=== PATIENT | male | born 1995 | race Caucasian/White ===

== ENCOUNTER 2017-12-01 13:18 | Emergency (ER) | payer MEDICAID ==
[2017-12-01] MEDS ORDERED: NALOXONE HCL 0.4 MG/ML INJ IVP ONE (13:22)
--- NOTE | 2017-12-01 13:23 | EDPHY ---
HPI/HX/ROS/PE/MDM Narrative: CHIEF COMPLAINT: Seizures, unresponsive HISTORY OF PRESENT ILLNESS: This patient is a 21 y/o male arriving emergently via EMS following multiple seizures. He was found this afternoon by his father at his [place] in [place], seizing and vomiting blood. On arrival the patient was in bed and EMS witnessed tonic-clonic seizure activity. EMS noted blood in the patient's mouth and missing teeth, but no trauma otherwise. Pupils pinpoint. Patient received Narcan. Minimal improvement. He received Versed IM by Fire Department as well as Versed IM by paramedics. He continued to have seizure activity noted in route. Patient was nasally intubated by EMS using Charli-Synephrine instilled in the nose, however he had as subsequent seizure and dislodged the nasal ET tube. He presents being bagged. Patient vitals on arrival were HR 170, BP 80/40, agonal breathing, BGL 216. BP improved to 90/36 following 1L IV NS. Per fire responders, there was no noticeable drug paraphernalia or alcohol on scene. His father denies any known past medical history, history of seizures, or known allergies. HPI obtained from EMS at bedside. Further HPI unobtainable due to patient presentation. History obtained from the father later includes no history of drug use, no history of seizures. Potential history of cocaine use in the remote past. Patient had been placed on Seroquel in the remote past but is no longer taking it. No medications available around the house other then Aleve. REVIEW OF SYSTEMS: Unable to obtain PAST MEDICAL HISTORY: Unknown. Per father, none. SOCIAL HISTORY: Lives in [place]. VITAL SIGNS: Reviewed by me; see NN. GENERAL: Unresponsive. Intermittent seizure activity. Seizure activity starts with rightward gaze followed by tonic clonic shaking of the upper extremities and tonic positioning of the lower extremities. HEENT: Head: Atraumatic, normocephalic. Face: Atraumatic. Eyes: Abnormally shaped left pupil. Small right pupil. Not reactive. Rightward gaze deviation when seizing. Oropharynx: Missing front left incisor. Blood in oropharynx. Neck : No adenopathy. Supple. CHEST: No subcutaneous air palpable. LUNGS: Coarse rhonchi throughout. CARDIAC: Tachycardic but regular. ABDOMEN: Soft, nondistended, bowel sounds normal. GENITOURINARY: Priapism. Patient incontinent of urine. BACK: No CVA tenderness, no spinal tenderness. EXTREMITIES: Intermittent tonic contractures of upper extremities. No trauma noted. PULSES: 2+ and equal throughout. NEURO: Unresponsive. See extremity/pupil findings. GCS: 3. No response to painful stimuli. SKIN: Warm and dry, no rash. Portions of this note were transcribed by a medical assisting program director. I personally performed a history, physical exam, medical decision making, and confirmed accuracy of information the transcribed note. ED Course: 13:18 Met EMS on arrival. Patient continues to seize. Unresponsive. Pupils unreactive. Right pupil pinpoint, left pupil oval, misshapen. Plan for intubation. Plan for CT Head. 1 mg of Ativan or.. 13:21 Procedure: Rapid sequence intubation. Indication for the procedure was airway protection. The patient was preoxygenated with 100% oxygen by face mask. The patient was given the following IV medications: 20mg IV Etomidate, 70mg IV rocuronium. The patient was orally endotracheally intubated under direct visualization with a 7.5 ETT. Tracheal intubation was confirmed with misting on the tube; breath sounds were auscultated equally bilaterally; appropriate color change with [place] [employer] CO2 detector. Chest X-ray shows ETT in good position. The procedure was performed by myself, Dr. Arenas. 13:21 Administered 1mg IV Ativan. 13:24 BP 127/68. Patient incontinent of urine. Plan to administer additional 1mg Ativan. Plan to administer 1gm IV Keppra. Plan for EKG, CXR, I-Stat. Coarse rhonchi throughout on auscultation. Patient had a considerable amount of blood in his mouth per EMS report. 13:35 CXR at bedside. ET tube slightly deep, no pneumonia noted. 14:[address] Bonilla, radiologist. CT head negative for acute processes including intracranial hemorrhage. While in the emergency department the patient continue to intermittently sees when his sedation, including propofol, wore off. Laboratory evaluation is remarkable for a bicarbonate of 7. Urine tox screen demonstrates no drugs of abuse. At this point patient was deemed to be in status epilepticus with no clear cause. Patient was loaded with 1 g of Dilantin. 14:[address] Patricio, neurologist at [facility]. Patient will be transferred by helicopter to [facility] for further evaluation. Dr. Patricio accepts admission. I spent a total of 45 minutes of critical care time in obtaining history, performing a physical exam, bedside monitoring of interventions, collecting and interpreting tests and discussion with consultants but not including time spent performing procedures. The organ system at risk was neurologic and I provided airway protection, provided anti epileptic medications, arrange for imaging studies, interpreted CT, discussed with Neurology, discussed with the family, and emergently transferred the patient to neurology specialty hospital to prevent worsening of the patients condition. MDM: Differential diagnosis of the patient's seizure was considered including but not limited to electrolyte abnormality, alcohol withdrawal, medication noncompliance, head injury, meningitis, encephalitis, and breakthrough seizure. - Data Points Imaging Results: Imaging Impressions Head CT 12/01/17 13:43 Impression: There is no acute intracranial abnormality identified on this unenhanced CT evaluation. If there is further clinical concern regarding the patient's symptoms, MR imaging is suggested, if not otherwise contraindicated. Findings were discussed with Dori Arenas MD at 14:00, on 12/01/2017. Chest X-Ray 12/01/17 13:50 Impression: 1. Status post intubation. 2. Portable AP recumbent changes, as detailed. Please see the above discussion. Findings were discussed with Dori Arenas MD at 14:14, on 12/01/2017. Imaging: Discussed imaging studies w/ psychologist [employer] personnel Radiologist, I viewed and interpreted images myself Laboratory Results: Laboratory Results 12/01/17 13:38 12/01/17 14:27 12/01/17 12/01/17 12/01/17 14:27 14:10 13:38 WBC RBC Hgb POC Hgb Hct POC Hct MCV MCH MCHC RDW Plt Count MPV Neut % (Auto) Lymph % (Auto) [place] % (Auto) Eos % (Auto) Baso % (Auto) Nucleat RBC Rel Count Absolute Neuts (auto) Absolute Lymphs (auto) Absolute Monos (auto) Absolute Eos (auto) Absolute Basos (auto) Absolute Nucleated RBC Immature Gran % Seg Neutrophils % Band Neutrophils % Lymphocytes % Monocytes % Metamyelocytes % Myelocytes % Immature Gran # Absolute Band Neuts Platelet Estimate POC Sodium Sodium 145 mEq/L mEq/L 149 mEq/L H mEq/L (135-145) (135-145) POC Potassium Potassium 5.2 mEq/L mEq/L 4.9 mEq/L mEq/L (3.5-5.2) (3.5-5.2) POC Chloride Chloride 109 mEq/L mEq/L 107 mEq/L mEq/L (97-110) (97-110) Carbon Dioxide 16 mEq/l L D mEq/l 7 mEq/l L* mEq/l (22-31) (22-31) Anion Gap 20 mEq/L H mEq/L 35 mEq/L H mEq/L (8-16) (8-16) POC BUN BUN 12 mg/dL mg/dL 11 mg/dL mg/dL (7-23) (7-23) Creatinine 1.1 mg/dL mg/dL 1.2 mg/dL mg/dL (0.7-1.3) (0.7-1.3) POC Creatinine Estimated GFR > 60 > 60 Glucose 229 mg/dL H mg/dL 262 mg/dL H mg/dL (70-100) (70-100) POC Glucose Calcium 8.0 mg/dL L mg/dL 8.7 mg/dL mg/dL (8.5-10.4) (8.5-10.4) Troponin I < 0.012 ng/mL ng/mL (0.000-0.034) Specimen Hemolysis 100 Urine Opiates Screen NEGATIVE (NEGATIVE) Urine Barbiturates NEGATIVE (NEGATIVE) Ur Phencyclidine Scrn NEGATIVE (NEGATIVE) Ur Amphetamine Screen NEGATIVE (NEGATIVE) U Benzodiazepines Scrn NEGATIVE (NEGATIVE) Urine Cocaine Screen NEGATIVE (NEGATIVE) U Marijuana (THC) Screen NEGATIVE (NEGATIVE) Ethyl Alcohol < 10 mg/dL mg/dL (0-10) 12/01/17 12/01/17 13:38 13:36 WBC 23.13 10^3/uL H 10^3/uL (3.80-9.50) RBC 5.59 10^6/uL 10^6/uL (4.40-6.38) Hgb 17.5 g/dL g/dL (13.7-17.5) POC Hgb 18.0 gm/dL H gm/dL (13.7-17.5) Hct 51.9 % H % (40.0-51.0) POC Hct 53 % H % (40-51) MCV 92.8 fL fL (81.5-99.8) MCH 31.3 pg pg (27.9-34.1) MCHC 33.7 g/dL g/dL (32.4-36.7) RDW 12.6 % % (11.5-15.2) Plt Count 246 10^3/uL 10^3/uL (150-400) MPV 10.5 fL fL (8.7-11.7) Neut % (Auto) Not Reported Lymph % (Auto) Not Reported [place] % (Auto) Not Reported Eos % (Auto) Not Reported Baso % (Auto) Not Reported Nucleat RBC Rel Count Not Reported Absolute Neuts (auto) Not Reported Absolute Lymphs (auto) Not Reported Absolute Monos (auto) Not Reported Absolute Eos (auto) Not Reported Absolute Basos (auto) Not Reported Absolute Nucleated RBC Not Reported Immature Gran % Not Reported Seg Neutrophils % 58 % % Band Neutrophils % 9 % % Lymphocytes % 18 % % Monocytes % 10 % % Metamyelocytes % 3 % % Myelocytes % 2 % % Immature Gran # Not Reported Absolute Band Neuts 2.08 10^3/uL H 10^3/uL (0.00-0.70) Platelet Estimate ADEQUATE (ADEQ) POC Sodium 144 mEq/L mEq/L (135-145) Sodium POC Potassium 4.2 mEq/L mEq/L (3.3-5.0) Potassium POC Chloride 110 mEq/L mEq/L (97-110) Chloride Carbon Dioxide Anion Gap POC BUN 14 mg/dL mg/dL (7-23) BUN Creatinine POC Creatinine 1.2 mg/dL mg/dL (0.7-1.3) Estimated GFR Glucose POC Glucose 276 mg/dL H mg/dL (70-100) Calcium Troponin I Specimen Hemolysis Urine Opiates Screen Urine Barbiturates Ur Phencyclidine Scrn Ur Amphetamine Screen U Benzodiazepines Scrn Urine Cocaine Screen U Marijuana (THC) Screen Ethyl Alcohol Medications Given: Propofol (Diprivan 10 Mg/Ml (Premix)) 100 mls @ 0 mls/hr IV CONT SHANELLE; Titrate PRN Reason: Protocol Stop: 05/30/18 13:27 Last Admin: 12/01/17 13:28 Dose: 100 mls Discontinued Medications Levetiracetam (Keppra (Premix)) 100 mls @ 400 mls/hr IV EDNOW ONE Stop: 12/01/17 13:46 Last Admin: 12/01/17 13:46 Dose: 100 mls Sodium Chloride (Ns) 1,000 mls @ 0 mls/hr IV ONCE ONE; Wide Open PRN Reason: Protocol Stop: 12/01/17 13:43 Last Admin: 12/01/17 13:20 Dose: 1,000 mls Lorazepam (Ativan Injection) 2 mg IVP EDNOW ONE Stop: 12/01/17 15:01 Last Admin: 12/01/17 15:00 Dose: 2 mg Lorazepam (Ativan Injection) 1 mg IVP EDNOW ONE Stop: 12/01/17 14:06 Last Admin: 12/01/17 14:05 Dose: 1 mg Lorazepam (Ativan Injection) 1 mg IVP EDNOW ONE Stop: 12/01/17 14:41 Last Admin: 12/01/17 14:40 Dose: 1 mg Naloxone HCl (Narcan) 2 mg IVP EDNOW ONE Stop: 12/01/17 13:23 Last Admin: 12/01/17 13:22 Dose: 2 mg Point of Care Test Results: 12/01/17 13:36 POC Sodium 144 POC Potassium 4.2 POC Chloride 110 POC BUN 14 POC Creatinine 1.2 POC Glucose 276 H General Initial Vital Signs: Initial Vital Signs Heart Rate 107 H 12/01/17 14:00 Respiratory Rate 33 H 12/01/17 14:00 Blood Pressure 181/113 H 12/01/17 14:00 O2 Sat (%) 95 12/01/17 14:00 O2 Delivery Mode Room Air Allergies/Adverse Reactions: No Known Allergies Allergy (Verified 07/03/13 08:42) Home Medications: Medication Instructions Recorded Miscellaneous Medical Supply [NO 1 ea MIS AD 06/17/12 HOME MEDS] QUEtiapine FUMARATE [Seroquel 400 mg PO DAILY 07/03/13 300mg (RX)] clonAZEPAM [Klonopin] mg PO 07/03/13 Hydrocodone/Acetaminophen [Sage 1 - 2 tab PO Q6H PRN #20 tab 02/13/15 5/325 (RX)] Departure - Departure Disposition: Acute Care Hospital [facility] Clinical Impression: Seizure, Status epilepticus Condition: Serious Referrals: Patient,NotPresent [Unknown] - As per Instructions Report Scribed for: Dori Arenas Report Scribed by: Sandra Holley Date of Report: 12/01/17 Time of Report: 14:24
[2017-12-01] MEDS ORDERED: PROPOFOL/EMULSION 100 ML IV SCH (13:28)
[2017-12-01] MEDS ORDERED: LORazepam 2 MG/ML INJ ONE ×3 (13:31→15:32)
[2017-12-01] MEDS ORDERED: levETIRAcetam 1000MG/NACL 100 ML IV ONE (13:32)
[2017-12-01] MEDS ORDERED: PROPOFOL/EMULSION 1,000 MG/100 ML BOTTLE IV ONE (13:33)
[2017-12-01] MEDS ORDERED: NS 1,000 ML IV ONE (13:42)
[2017-12-01 13:50] LABS: PLATELET COUNT 246 10^3/uL (150-400)
[2017-12-01] MEDS ORDERED: LORazepam 2 MG/ML INJ IVP ONE ×4 (14:05→15:00)
[2017-12-01 15:06] VITALS: BP 129/77
[2017-12-01] MEDS ORDERED: NALOXONE HCL 2 MG/2 ML SYR IVP ONE (15:33)
[2017-12-01] MEDS ORDERED: ROCURONIUM 100 MG/10 ML VIAL ONE (15:55)
[2017-12-01] MEDS ORDERED: ETOMIDATE 40 MG/20 ML INJ ONE (15:55)
== END 2017-12-01 15:26 | disposition short-term general hospital (02) ==
LOC: EDUNIT# → UNDOADMIN 14:27
PROC: 0BH17EZ Insertion of Endotracheal Airway into Trachea, Via Natural or Artificial Opening (ICD-10-PCS; principal; 2017-12-01)
PROC: 0T9B70Z Drainage of Bladder with Drainage Device, Via Natural or Artificial Opening (ICD-10-PCS; principal; 2017-12-01)
DX: G40.901 Epilepsy, unspecified, not intractable, with status epilepticus (principal); E86.9 Volume depletion, unspecified
CPT/HCPCS: 80305; 82947-QW; 96374; G0480; J1953; J2060; J2310; J2704

== ENCOUNTER → 2018-01-31 | Outpatient (CLI) | payer MEDICAID ==
--- NOTE | 2018-01-31 14:21 | CPEEG ---
[f rep st] ELECTROENCEPHALOGRAM FOUR-HOUR VIDEO EEG DATE OF STUDY: 01/31/2018 INTERPRETATION: This 4-hour video EEG recording is normal. There were no potentially epileptogenic abnormalities present during the awake or sleep recordings. The patient did not have any clinical ev ents during the video EEG monitoring session. REPORT: This 4-hour video EEG contains 10 Hz alpha activity over the posterior head regions. The ba ckground activity was normal and symmetric. There was no abnormal activation at rest, during photic stimulation or hyperventilation. The patient became drowsy and fell into sustained sleep during the study. There was no abnormal activation during drowsiness, sleep, or during times of arousal. The p benji did not have any clinical events during the video EEG monitoring session. /[id number]/MODL
== END ==
LOC: FCPNEURO 08:02
PROVIDERS: ATTEND Psychiatry & Neurology Neurology
DX: R56.9 Unspecified convulsions (principal)

== ENCOUNTER → 2018-08-09 | Outpatient (CLI) | payer MEDICAID ==
--- NOTE | 2018-08-09 13:58 | CPEEG ---
DATE OF STUDY: PROCEDURE: 4-hour video EEG INTERPRETATION: This 4-hour video EEG recording is normal. There were no potentially epileptogenic abnormalities present during the awake or sleep recordings. During the video EEG monitoring session, the patient did not have any clinical events. REPORT: This 4-hour video EEG contains 10 Hz alpha activity to the posterior head regions. There wa s no abnormal activation at rest, with photic stimulation or hyperventilation. The patient became dr owsy and fell asleep during the study. There was no abnormal activation during drowsiness, sleep, or during times of arousal. The patient did not have any clinical events during the video EEG recordin sarahyBlessing /[id number]/MODL
== END ==
LOC: FCPNEURO 07:50
PROVIDERS: ATTEND Psychiatry & Neurology Neurology
DX: R56.9 Unspecified convulsions (principal)

== ENCOUNTER → 2018-08-11 | Outpatient (CLI) | payer MEDICAID ==
[~2018-08-11] MED LIST: GADOBUTROL 10 ML VIAL IVP ONE
== END ==
LOC: FIMAGING 06:46
PROVIDERS: ATTEND Psychiatry & Neurology Neurology
DX: R56.9 Unspecified convulsions (principal)
CPT/HCPCS: A9585

== ENCOUNTER → 2018-10-09 | Outpatient (CLI) | payer MEDICAID | LOC: FIMAGING 18:38 | DX: M51.34 Other intervertebral disc degeneration, thoracic region (principal); M50.30 Other cervical disc degeneration, unspecified cervical region ==

== ENCOUNTER 2018-11-18 01:20 | Emergency (ER) | payer OTHER, MEDICAID ==
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
[2018-11-18 03:18] VITALS: BP 131/78
== END 2018-11-18 03:17 | disposition home or self-care (01) ==
PROC: 0HQ0XZZ Repair Scalp Skin, External Approach (ICD-10-PCS; principal; 2018-11-18)
DX: S01.01XA Laceration without foreign body of scalp, initial encounter (principal); M54.2 Cervicalgia; V49.49XA Driver injured in collision with other motor vehicles in traffic accident, initial encounter; Y92.410 Unspecified street and highway as the place of occurrence of the external cause; Z87.891 Personal history of nicotine dependence